=== PATIENT | female | born 1955 | race Caucasian/White ===

== ENCOUNTER 2019-08-25 01:00 | Emergency (ER) | payer OTHER ==
[~2019-08-25] VITALS: Ht 160 cm; Wt 86.2 kg
[~2019-08-25 01:00] MED LIST: ACETAMINOPHEN-1 EAC1 PO; CARISOPRODOL 3350 MG PO; COZAAR 50 MG TA50 M2 PO; FLEXERIL PO; GLIPIZIDE ER10 MG PO; GLUCOPHAGE; GLUCOTROL; GLYBURIDE 1.21.25 M1; HYDROCODONE-APA1 TA1 PO; KEFLEX500 MG PO; LANTUS SC; LISINOPRIL20 MG; METFORMIN HCL1000 M1 PO; METFORMIN HCL500 MG PO; NAPROSYN500 MG PO; NORCO 5-325 TA1 EACH PO; ROBAXIN 750 MG750 M1 PO; ROBAXIN500 MG PO; ULTRAM 50MG TAB50 MG PO
[2019-08-25] MEDS ORDERED: TRAMADOL 50 MG50 MG PO (02:20)
[2019-08-25] MEDS ORDERED: NAPROSYN500 MG PO (02:20)
[2019-08-25 02:37] VITALS: BP 168/71
== END 2019-08-25 02:41 | disposition home or self-care (01) ==
LOC: ER 01:00
DX: S40.012A Contusion of left shoulder, initial encounter (principal); R07.89 Other chest pain; E11.9 Type 2 diabetes mellitus without complications; J45.909 Unspecified asthma, uncomplicated; I10 Essential (primary) hypertension; K21.9 Gastro-esophageal reflux disease without esophagitis; M19.90 Unspecified osteoarthritis, unspecified site; Z79.899 Other long term (current) drug therapy; W18.39XA Other fall on same level, initial encounter; Y93.89 Activity, other specified; Y92.89 Other specified places as the place of occurrence of the external cause; Y99.8 Other external cause status

== ENCOUNTER 2021-02-23 19:38 | Emergency (ER) | payer OTHER ==
[~2021-02-23] VITALS: Ht 162.6 cm; Wt 77.3 kg
[~2021-02-23 19:38] MED LIST changes: +TRAMADOL 50 MG50 MG PO
[2021-02-23] MEDS ORDERED: LOSARTAN-HCTZ1 EACH PO (19:47)
[2021-02-23] MEDS ORDERED: VICTOZA 3-0.6 MG/0.1 SUBQ (19:48)
[2021-02-23] MEDS ORDERED: METFORMIN HCL500 M1 PO (19:48)
[2021-02-23] MEDS ORDERED: LEVEMIR FL100 UNIT/2 SUBQ (19:48)
[2021-02-23 20:23] LABS: ABSOLUTE NEUTROPHILS 3.2 thou/uL (1.4-8.2); BASOPHILS 0.4 % (0.0-2.0); EOSINOPHILS 5.5 % (0.0-3.0); HEMATOCRIT 39.9 % (37.0-47.0); HEMOGLOBIN 13.7 gm/dL (12.0-15.0); LYMPHOCYTES 35.8 % (24.0-44.0); MCH 32.1 pg (26.0-34.0); MCHC 34.4 g/dL (28.0-37.0); MCV 93.2 fL (80.0-100.0); MONOCYTES 7.1 % (1.0-8.0); PLATELET COUNT 89 thou/uL (150-400); POLYS 51.2 % (36.0-66.0); RBC 4.28 mil/uL (4.20-5.00); RDW 14.1 % (10.5-14.5); WBC 6.3 thou/uL (4.0-11.0)
[2021-02-23 20:46] LABS: CALCIUM 9.8 mg/dL (8.5-10.1); CREATININE 1.2 mg/dL (0.6-1.0); POTASSIUM 3.8 mmol/L (3.5-5.1)
[2021-02-23] MEDS ORDERED: IBUPROFEN 600600 M1 PO (22:55)
[2021-02-23 23:09] VITALS: BP 160/74
--- NOTE | 2021-02-25 07:27 | EKG ---
[address] [address] ELECTROCARDIOGRAM REPORT Name: MARY BARNES CHAO Room #: 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
== END 2021-02-23 23:12 | disposition home or self-care (01) ==
LOC: ER 19:38
PROVIDERS: Student in an Organized Health Care Education/Training Program
DX: S80.211A Abrasion, right knee, initial encounter (principal); M25.562 Pain in left knee; M25.561 Pain in right knee; M54.9 Dorsalgia, unspecified; E11.9 Type 2 diabetes mellitus without complications; J45.909 Unspecified asthma, uncomplicated; I10 Essential (primary) hypertension; K21.9 Gastro-esophageal reflux disease without esophagitis; M17.10 Unilateral primary osteoarthritis, unspecified knee; Z79.4 Long term (current) use of insulin; Z90.89 Acquired absence of other organs; Z79.899 Other long term (current) drug therapy; Z88.2 Allergy status to sulfonamides; W19.XXXA Unspecified fall, initial encounter; Y93.89 Activity, other specified; Y92.89 Other specified places as the place of occurrence of the external cause; Y99.8 Other external cause status